=== PATIENT | male | born 2005 | race Caucasian/White ===

== ENCOUNTER 2024-12-25 08:04 | Outpatient (CLI) | payer BC, SELFPAY ==
--- NOTE | 2024-12-25 08:15 | CRLHL7_ITS ---
For Patients: As a result of the Century Cures Act, medical imaging exams and procedure reports are released immediately into your electronic medical record. You may view this report before your referring provider. If you have questions, please contact your health care provider. Indication: Superior glenoid labrum lesion of right shoulder Comparison: 12/13/2024 Procedure : Informed consent was obtained. The site was marked. Time-out was performed. The skin of the right shoulder was cleansed with ChloraPrep. A sterile drape was placed. 8 cc of 1 percent lidocaine was administered for superficial anesthesia. Subsequently a 22 gauge spinal needle was introduced into the right shoulder joint under intermittent fluoroscopic guidance. Injection of 2 cc nonionic Omnipaque 240 contrast confirmed intra-articular location. Subsequently 11 cc of dilute gadolinium were injected. The needle was removed and hemostasis achieved with direct pressure. A dressing was placed. The patient tolerated the procedure well without immediate complication and was immediately sent to MRI for imaging. Total fluoroscopy time 66 seconds. Impression: Successful fluoroscopically guided right shoulder arthrogram for MRI. Dictated by Nolan Gibbs MD @ 12/25/2024 10:44:06 AM (Electronically Signed)
--- NOTE | 2024-12-25 09:15 | MR_ITS ---
[address] [address] Phone:?[phone] Fax:?[phone] Referring Physician Information: Terell Stark M.D. [address] [facility] [address] Phone:?[phone] Fax:?[phone] Patient:Maribell Sears Fanny.O.B:?2005 Sex:?Male Phone:?[phone] [facility] MRN:?[id number] Exam Date:?12/25/2024 EXAM: MR ARTHROGRAM of the RIGHT SHOULDER CLINICAL: Male, 19 years old, with right shoulder pain. No other clinical information is available/provided at this time. INDICATION: Evaluate for superior glenoid labrum lesion versus other shoulder internal derangement etiology. PRIOR SURGERY: None reported. PLAIN FILMS: None available. COMPARISONS: No prior MRIs available. TECHNICAL: Exam performed after fluoroscopically-guided and gadolinium contrast arthrography of the right glenohumeral joint, reported separately. Using a 1.5T MR scanner and a localizing shoulder surface coil: 3.0 mm?coronal obliques: PD, T2, T1FS 4.0 mm?coronal obliques: T2FS 3.0 mm?sagittal obliques: PD, T2 3.0 mm?axials: PD, T2 [place] SEDATION: None. CONTRAST: No intravenous contrast. IMPRESSION: 1. No superior or other labral tear. 2. Suspected residua of mild acromioclavicular joint sprain injury which may be correlated for any clinical presentation of symptoms referable to the AC joint. 3. Rather marked abnormal thickening and signal alteration of the inferior capsuloligamentous complex, especially anteriorly, as could reflect residua of injury or perhaps findings of adhesive capsulitis. 4. No rotator cuff tear or elena tendinopathy 5. No biceps tendon pathology. 6. No glenohumeral chondromalacia/osteoarthritis. FINDINGS: Glenohumeral joint: Contrast/cyst: Intraarticular contrast. No ganglion cyst. Articular cartilage: Humeral head: Intact. Glenoid: Intact. Loose bodies: None demonstrable. Inferior glenohumeral ligament/axillary recess: Relatively marked thickening and signal alteration of the inferior capsuloligamentous complex, especially anteriorly, appears in keeping with either residua of inferior capsuloligamentous injury or perhaps could represent adhesive capsulitis (axial PD & PDFS series 4 views and 3, images 22-26; coronal PD & PDFS series 7 & 5, images 20-12). Labrum: Unremarkable. Bones: Proximal humerus: Intact. No humeral Hill-Sachs or reverse Hill-Sachs lesion. Glenoid: Intact. No osseous [place] lesion. Coracoacromial arch: Acromion morphology: Type I acromion without defined subacromial spur/enthesophyte. Os acromiale: None. Acromiohumeral space: Within normal limits at a minimum of 6 mm. Coracohumeral space: Widely patent. Acromioclavicular joint: Joint: Minimal joint fluid and slight adjacent edema of the acromiohumeral joint could perhaps represent residua of mild sprain injury (coronal PDFS series 5, images 15-11; axial PDFS series 3, images 7-8). Ligaments: Intact coracoclavicular ligaments. Bursae: Subacromial-subdeltoid: No subacromial contrast. Unremarkable. Subcoracoid: Unremarkable. Rotator cuff and muscles/tendons: Supraspinatus: Unremarkable. Infraspinatus: Unremarkable. Teres minor: Unremarkable. Subscapularis: Unremarkable. Deltoid: Unremarkable. Biceps tendon, long head: Intact without displacement. Axilla: None. [facility] Electronically signed on 12/30/2024 10:56:00 AM by Farzad Tony M.D.
== END 2024-12-25 08:05 | disposition home or self-care (01) ==
LOC: RAD 08:05
PROVIDERS: Visit Provider Orthopaedic Surgery Sports Medicine
DX: M25.511 Pain in right shoulder (principal); S43.431A Superior glenoid labrum lesion of right shoulder, initial encounter
CPT/HCPCS: 23350; 73222; 77002; A9575; Q9966